=== PATIENT | female | born 1950 | race Caucasian/White ===

== ENCOUNTER → 2024-10-30 15:00 | Outpatient (REF) | payer OTHER, SELFPAY ==
--- OUTSIDE RECORDS SUMMARY | 2024-10-30 17:32 | XMS_ITS | Encounter Summary ---
Author Organization [facility] Healthcare Address [address] [place] [address] Care Team Providers Care Molder Foam Rubber Name Role Phone Ramona Woods MD Unavailable [phone] Vinicius Alvarado MD Unavailable [phone] Dre Palmer MD Primary Care Provider [phone] Reason for Referral * Consultation (Routine) - Authorized Specialty Diagnoses / Procedures Referred By Contac t Referred To Contact Cardiology Diagnoses Nonrheumatic mitral valve regurgitation Dre Palmer MD [address] [place] [address] [address] [place] [address] Phone: tel: fax: Ramona Woods MD [address] [place] [address] [address] [place] [address] Phone: tel: fax: Referral ID Status Reason Start Date Expiration Date Visits Requested Visits Authorized [id number] Authorized Specialty Services Required 11/05/2024 11/04/2025 6 6 Question Answer Please select the performing region: HOSP [facility] [[id number]] Please select the performing department: [facility] 122 [[id number]] To provider: RAMONA WOODS [[id number]] # of visits: 1 NG MACHINE OPERATOR PRODUCTION Encounter Details Date Type Department Care Team (Late st Contact Info) Description 10/29/2024 Orders Only [facility] Medical Group Primary Care at [place] [address] [facility] [address] [place] [address] Dre Palmer MD [address] [place] [address] [address] [place] [address] Nonrheumatic mitral valve regurgitation (Primary Dx) Social History Tobacco Use Types Packs/Day Years Used Date Smoking Tobacco: Never Smokeless Tobacco: Never Alcohol Use Standard Drinks/Week Comments Yes 0 (1 standard drink = 0.6 oz pur e alcohol) rarely OASIS D0700: Social Isolation Answer Da te Recorded Frequency of experiencing loneliness or isolatio n Never 11/19/2022 OASIS A1250: Transportation Answer Date Recorded Lack of Transportation (Medical) No 11/19/2022 Lack of Transportation (Non-Medical) No 11/19/2022 Patient Unable or Declines to Respond No 11/19/2022 OASIS B1300: Health Literacy Answer Feliciano e Recorded Frequency of needing help to read materials from doctor or pharmacy Never 11/19/2022 Social Connection and Isolat ion Panel [NHANES] Answer Date Recorded In a typical week, how many times do you talk on the phone with family, friends, or neighbors? More than three times a week 10/20/2022 How often do you get togethe r with friends or relatives? More than three times a week 10/20/2022 How often do you attend chur ch or confucianist services? More than 4 times per year 10/20/2022 Do you belong to any clubs o r organizations such as cheondoism groups, unions, fraternal or athletic groups, or school groups? Yes 10/20/2022 How often do you attend meet ings of the clubs or organizations you belong to? More than 4 times per year 10/20/2022 Are you , , di vorced, , never , or living with a partner? 10/20/2022 AUDIT-C Answer Date Recorded Q1: How often do you have a drink containing alcohol? Never 03/23/2023 Q2: How many drinks containi ng alcohol do you have on a typical day when you are drinking? Patient does not drink Q3: How often do you have si x or more drinks on one occasion? Never 03/23/2023 Overall Financial Resource Strain (CARDIA) Answe r Date Recorded How hard is it for you to pa y for the very basics like food, housing, medical care, and heating? Not hard at all 10/20/2022 PHQ-2 Answer Date Recorded PHQ-2 Total Score (If total score is 3 or more points, staff should administer the PHQ-9) 0 07/09/2024 Hunger Vital Sign Answer Date Recorded Within the past 12 months, y ou worried that your food would run out before you got the money to buy more. Never true 10/15/19 23 Within the past 12 months, t he food you bought just didn't last and you didn't have money to get more. Never true 10/15/2022 PRAPARE - Transportation Answer Date Re corded In the past 12 months, has l ack of transportation kept you from medical appointments or from getting medications? No 10/06 In the past 12 months, has l ack of transportation kept you from meetings, work, or from getting things needed for daily living? No 10/20/2022 Housing Stability Vital Sign Answer Feliciano e Recorded In the last 12 months, was t here a time when you were not able to pay the mortgage or rent on time? No 10/20/2022 In the last 12 months, how many places have you lived? 1 10/20/2022 In the last 12 months, was t here a time when you did not have a steady place to sleep or slept in a [place] [facility] [place] facility (including now)? No 10/20/2022 Personal Safety Answer Date Recorded Have you ever been in or are you currently in a harmful physical or emotional relationship or is someone making you feel afraid or unsafe? 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 Gender Identity Not on file Sexual Orientation Not on file documented as of this encounter Plan of Treatment Scheduled Referrals Name Type Priority Associated Diagnoses Orde r Schedule Ambulatory referral to Cardiology Outpatient Referral Routine Nonrheumatic mitral valve regurgitation Expected: 10/29/2024 (Approximate), Expires: 10/29/2025 documented as of this encounter Visit Diagnoses Diagnosis Nonrheumatic mitral valve regurgitation- Primary documented in this encounter Care Teams Molder Foam Rubber Relationship Specialty Start Date End Date Dre Palmer MD [address] [facility] [address] [place] [address] PCP - General Family Medicine 05/05/24 Ramona Woods MD [address] [place] [address] Consulting Physician Cardiology 05/28/22 Vinicius Alvarado MD [address] [facility] [address] [place] [address] Surgeon Orthopedic Surgery 07/22/22 documented as of this encounter
--- OUTSIDE RECORDS SUMMARY | 2024-10-30 17:32 | XMS_ITS | Encounter Summary ---
Author Organization [facility] Healthcare Address [address] [place] [address] Care Team Providers Care Process Engineering Intern Name Role Phone Ramona Woods MD Unavailable [phone] Vinicius Alvarado MD Unavailable [phone] Dre Palmer MD Primary Care Provider [phone] Reason for Visit * Reason Onset Date Comments Medical Question/Miscellaneous 10/11/2024 Referral Request 10/11/2024 Encounter Details Date Type Department Care Team (Late st Contact Info) Description 10/11/2024 Telephone [facility] Medical Group Primary Care at [address] [place] [address] Dre Palmer MD [address] [place] [address] [address] [place] [address] Medical Question/Miscellaneous ; Referral Request Social History Tobacco Use Types Packs/Day Years [...] often do you attend chur ch or restoration services? More than 4 times per year 10/20/2022 Do you belong to any clubs o r organizations such as orthodox groups, unions, fraternal or athletic groups, or [...] place to sleep or slept in a jail (including now)? No 10/20/2022 Personal Safety Answer Date Recorded Have you ever been in or are you currently in a harmful physical or emotional relationship or is someone making you feel afraid or unsafe? 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 Y BUTCHER * Telephone Encounter - Lety Rivera - 10/11/2024 10:27 AM CST Referral Provider Name: Shilpi Cueva MD Specialty: plastic surgeon Address: [address] [place] [address], Zip: [place] [address] Diagnosis Code/Symptom/Reason Patient is being seen: C44.92 Date of Appointment: 10/30/24 NPI#: [id number] Tax ID#: [id number] Is insurance in chart up to date? Yes, Essence Additional Comments: new patient appointment Does message need to be routed? Yes-Action Needed Y BUTCHER * Telephone Encounter - Carolyn Arambula - 10/11/2024 10:20 AM CST Medical Question/Miscellaneous Caller???s Concern: Patient called for a referral for Dr. Leung (Nithin) with 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 She did not know the first name of the provider.States she will see him at the [facility] and has a fax#. She will call back when she has more information. Does message need to be routed? No Y BUTCHER documented in this encounter Plan of Treatment Not on file documented as of this encounter Visit Diagnoses Not on filedocumented in this encounter Care Teams Process Engineering Intern Relationship Specialty Start Date End Date Dre Palmer MD [address] [facility] [address] [place], [place] [address], [place] [address] PCP - General Family Medicine 05/05/24 Ramona Woods MD [address] [place] [address] Consulting Physician Cardiology 05/28/22 Vinicius Alvarado MD [address] [facility] [address] [place] [address] Surgeon Orthopedic Surgery 07/22/22 documented as of this encounter
--- OUTSIDE RECORDS SUMMARY | 2024-10-30 17:32 | XMS_ITS | Patient Health Summary ---
Author Organization [facility] Address [address] [facility] [place] [address] Care Team Providers Care Warehouse Traffic Supervisor Name Role Phone Onelia Sow APRN-OBJECT ORIENTED DEVELOPER Primary Care Provide r Kathi Snider MD Unavailable [phone] Note from [facility],non-owned Affiliates and Associated Physician Practices is amultiple site organization consisting of ambulatory clinics and hospital sitesin [place], [place], [place] and [place]. This disclosure is being madepursuant to the Care Everywhere program and may not contain all information available regarding this patient. Last updated 18.[facility] Phase Eight Allergies No known active allergies Medications * Be aware that medications may not be up to date on this document. Alwaysverify current medications with the patient. * atorvastatin (LIPITOR) 40 MG tablet Take 40 mg by mouth * lisinopril-hydroCHLOROthiazide (PRINZIDE; ZESTORETIC) 10-12.5 MG tablet (Started 01/03/2017) Take 1 Tab by mouth once daily 5 refills remaining Active Problems Problem Noted Date Diagnosed Date Hypertension with goal blood pressure less than 130/85 01/21/2016 Pure hypercholesterolemia 01/21/2016 Chest pressure 01/21/2016 Shortness of breath 01/21/2016 Nonrheumatic aortic valve stenosis 01/21/2016 Social History Tobacco Use Types Packs/Day Years Used Date Smoking Tobacco: Never Alcohol Use Standard Drinks/Week Comments Yes 0 (1 standard drink = 0.6 oz pur e alcohol) Sex and Gender Information Value Date Recorded Sex Assigned at Not on file Gender Identity Not on file Sexual Orientation Not on file Last Filed Vital Signs Vital Sign Reading Time Taken Comments Blood Pressure 128/86 09/08/2016 11:45 AM MERCHANT MARINER Pulse 80 09/08/2016 11:45 AM MERCHANT MARINER Temperature - - Respiratory Rate 12 09/08/2016 11:45 AM MERCHANT MARINER Oxygen Saturation 12% 07/19/2016 9:50 AM MERCHANT MARINER Inhaled Oxygen Concentration - - Weight 80.7 kg (178 lb) 09/08/2016 11:45 AM MERCHANT MARINER Height 163.2 cm (5' 4.25 ) 09/08/2016 11:[address] Body Mass Index 30.32 09/08/2016 11:45 AM MERCHANT MARINER Procedures * DERMATOPATHOLOGY(Performed 01/24/2024) Performed for Squamous cell carcinoma of skin of right upper limb, including shoulder * NM MYOCARD PERF REST STRESS(Performed 01/26/2016) Performed for Chest discomfort, Dyspnea, unspecified type, Essential hypertension with goal blood pressure less than 130/80, Hyperlipidemia, unspecified hyperlipidemia type * LAB MISC TEST(Performed 12/08/2015) * ECHO COMPLETE(Performed 12/01/2015) * EKG 12-LEAD(Performed 11/05/2010) Results * DERMATOPATHOLOGY (01/24/2024 12:00 AM CDT) Case Report Dermatopathology Report Case: [id number] Authorizing Provider: Álvaro Noel MD Collected: 01/24/2024 12:00 AM Ordering Location: [facility] - Received: 01/25/2024 12:27 PM DermPath Lab Pathologist: Dimple Martinez MD Specimen: Skin, right shoulder 1:49 PM CDT DERMATOPATHOLOGY LABORATORY Final Diagnosis Specimen A. SKIN, right shoulder: DERMAL SCAR RESIDUAL SQUAMOUS CELL CARCINOMA NOT IDENTIFIED (L90.5) 1:49 PM CDT DERMATOPATHOLOGY LABORATORY Clinical History Squamous cell carcinoma. Check margins. See prior biopsy. 1:49 PM CDT DERMATOPATHOLOGY LABORATORY Gross Description Specimen A: Received is one formalin filled container labeled with the patient's name and designated right shoulder. The specimen consists of a non-oriented ellipse of skin measuring 33l91s5 mm. The epidermal surface is unremarkable. The margin is inked green. The 12 o'clock and 6 o'clock tips are submitted in cassette 1. The remainder of the ellipse is serially sectioned and submitted in cassette 2. Jar 0. 4 1:49 PM CDT DERMATOPATHOLOGY LABORATORY Microscopic Description Specimen A. SKIN, right shoulder: There are fibroblasts and collagen bundles oriented parallel to the skin surface. There are elongated blood vessels, some of which are oriented perpendicular to the skin surface. No residual squamous cell carcinoma is identified. 4 1:49 PM CDT DERMATOPATHOLOGY LABORATORY Disclaimer An external and internal positive and negative controls are appropriate for the histochemical, immunohistochemical and immunofluorescence stain(s) in this case (if any), except where stated explicitly. The performance characteristics of the stain(s) cited in this report were developed and its performance characteristic determined by the Dermatopathology Laboratory at [facility], directed by Dr. Etienne Sevilla. These tests need not be, and therefore are not, approved by the [place] Food and Drug Administration. The tests are used for clinical purposes. Billing Codes Specimen Charges Stain Charges 29027 1 4 1:49 PM CDT DERMATOPATHOLOGY LABORATORY Embedded Images 4 1:49 PM CDT DERMATOPATHOLOGY LABORATORY Pathology/Cytolog y TISSUE SPECIMEN FROM SKIN / Unknown 01/24/2024 01/25/2024 12:27 PM CDT Álvaro Noel MD LAB - PATHOLOGY/CYTO LOGY ORDERABLES DERMATOPATHOLOGY LABORATORY [facility] Department of Dermatology [address], [address] [phone] * NM MYOCARD PERFUSION SPECT STRESS AND REST (01/26/2016 10:01 AM CDT) Anatomical Region Laterality Modality Chest Other Narrative 01/26/2016 10:01 AM CDT Ginny Surinder 01/26/2016 10:01 AM See scan Kathi Snider MD NM ORDERABLES * LAB MISC TEST (12/08/2015) Other (qualifier value) BLOOD SPECIMEN / Unknown Onelia Sow APRN-MARIA E LAB SEND OUT * ECHO COMPLETE (12/01/2015) Historical Provider ECHO ORDERABLES * EKG 12-LEAD (11/05/2010) Historical Provider ECG ORDERABLES Care Teams Warehouse Traffic Supervisor Relationship Specialty Start Date End Date Onelia Sow, SUPPORT ASSISTANT-OBJECT ORIENTED DEVELOPER PCP - General Nurse Practitioner 01/21/16 Kathi Snider MD [address] [facility] [address] [facility] [place] [address] Cardiovascular Disease 01/21/16
--- OUTSIDE RECORDS SUMMARY | 2024-10-30 17:32 | XMS_ITS | Encounter Summary ---
Author Organization [facility] Healthcare Address [address] [place] [address] Care Team Providers Care Artificial Foliage Arranger Name Role Phone Rehana Carlos Primary Care Provider [phone] Ramona Woods MD Unavailable [phone] Vinicius Alvarado MD Unavailable [phone] Ramona Woods MD Unavailable [phone] Airam Armando RN Unavailable [phone] Dre Palmer MD Primary Care Provider [phone] Encounter Details Date Type Department Care Team (Late st Contact Info) Description 09/24/2022 Telephone [facility] Cardiac Catheterization [address] [place], [place] [id number] Antonina Foy RN Social History Tobacco Use Types Packs/Day Years Used Date Smoking Tobacco: Never Smokeless Tobacco: Never Alcohol Use Standard Drinks/Week Comments Yes 0 (1 standard drink = 0.6 oz pur e alcohol) rarely AUDIT-C Answer Date Recorded Q1: How often do you have a drink containing alc ohol? 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 05/15/2024 05/28/2024 08/13/2024 3:[address] documented as of this encounter Care Teams Artificial Foliage Arranger Relationship Specialty Start Date End Date Rehana Carlos DO PCP - General Family Medicine 05/03/18 05/04/24 Dre Palmer MD [address] [facility] [address] [place] [address] PCP - General Family Medicine 05/05/24 Ramona Woods MD [address] [place] [address] Consulting Physician Cardiology 05/28/22 Vinicius Alvarado MD [address] [facility] [address] [place] [address] Surgeon Orthopedic Surgery 07/22/22 Ramona Woods MD #[address] [place] [address] Referring Physician Cardiology 09/29/22 02/01/23 Airam Armando RN [address] [place] [address] [address] [place] [address] Computer Typesetter Keyliner 2/15/23 3/14/23 documented as of this encounter
--- OUTSIDE RECORDS SUMMARY | 2024-10-30 17:32 | XMS_ITS | Referral Summary ---
Author Organization [facility] Address [address] [place] [address] Care Team Providers Care Supervisor Wash House Name Role Phone Onelia Sow APRN-COOPERATIVE MANAGER Primary Care Provide r Kathi Snider MD Unavailable Source Comments [facility],non-owned Affiliates and Associated Physician Practices is amultiple site organization consisting of ambulatory clinics and hospital sitesin [place], [place], [place] and [place]. This disclosure is being madepursuant to the Care Everywhere program and may not contain all information available regarding this patient. Last updated 18.[facility] Allergies No known active allergies Medications * Be aware that medications may not be up to date on this document. Alwaysverify current medications with the patient. Medication Sig Dispensed Refills Start Date End Date Status atorvastatin (LIPITOR) 40 MG tablet Take 40 mg by mouth Active lisinopril-hydroCHLOROt hiazide (PRINZIDE; ZESTORETIC) 10-12.5 MG tablet Take 1 Tab by mouth once daily 30 Tab 5 01/03/2017 Active Active Problems Patient Care Coordination No te Formatting of this note migh t be different from the original. Guard Entrance Registrar - Dr. Kathi Snider Problem Noted Date Diagnosed Date Hypertension with goal blood pressure less than 130/85 01/21/2016 Pure hypercholesterolemia 01/21/2016 Chest pressure 01/21/2016 Shortness of breath 01/21/2016 Nonrheumatic aortic valve stenosis 01/21/2016 Overview (01/21/2016): Echo 12/01/15- Nl LV syst func, LVEF 73%, mild LAE, mild ( pk matt, 2.07, mean grad 9 mm Hg), mild MR/TR, RVSP43 mm Hg Social History Tobacco Use Types Packs/Day Years [...] Comments Blood Pressure 128/86 09/08/2016 11:45 AM COSTUMING SUPERVISOR Pulse 80 09/08/2016 11:45 AM COSTUMING SUPERVISOR Temperature - - Respiratory Rate 12 09/08/2016 11:45 AM COSTUMING SUPERVISOR Oxygen Saturation 12% 07/19/2016 9:50 AM COSTUMING SUPERVISOR Inhaled Oxygen Concentration - - Weight 80.7 kg (178 lb) 09/08/2016 11:45 AM COSTUMING SUPERVISOR Height 163.2 cm (5' 4.25 ) 09/08/2016 11:[address] Body Mass Index 30.32 09/08/2016 11:45 AM COSTUMING SUPERVISOR Plan of Treatment Not on file Care Teams Supervisor Wash House Relationship Specialty Start Date End Date Onelia Sow, LEARN TO SWIM INSTRUCTOR-COOPERATIVE MANAGER PCP - General Nurse Practitioner 01/21/16 Kathi Snider MD [address] [facility] [address] [facility] [place] [id number] Cardiovascular Disease 01/21/16
--- OUTSIDE RECORDS SUMMARY | 2024-10-30 17:32 | XMS_ITS | Encounter Summary ---
Author Organization [facility] Healthcare Address [address] [place] [address] Care Team Providers Care Slot Attendant Name Role Phone Ramona Woods MD Unavailable [phone] Vinicius Alvarado MD Unavailable [phone] Dre Palmer MD Primary Care Provider [phone] Reason for Visit * Reason Onset Date Comments Referral Request 10/26/2024 Encounter Details Date Type Department Care Team (Late st Contact Info) Description 10/26/[address] [facility] Medical Group Primary Care at [address] [place] [address] Dre Palmer MD [address] [place] [address] [address] [place] [address] Referral Request Social History Tobacco Use Types [...] often do you attend chur ch or synagogue services? More than 4 times per year 10/20/2022 Do you belong to any clubs o r organizations such as mosque groups, unions, fraternal or athletic groups, or [...] place to sleep or slept in a senior living (including now)? No 10/20/2022 Personal Safety Answer Date Recorded Have you ever been in or are you currently in a harmful physical or emotional relationship or is someone making you feel afraid or unsafe? 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 MAKER MACHINE SETTER * Telephone Encounter - Becka Delgadillo - 10/26/2024 8:23 AM CST Referral Provider Name: Dr. Ramona Woods Specialty: Automatic Line Set Up Mechanic Address: [address] [place] [address], Zip: [place] [address] Diagnosis Code/Symptom/Reason Patient is being seen: I34.0 Date of Appointment: 11/12 testing, 12/06 appt NPI#: [id number] Tax ID#: [id number] Is insurance in chart up to date? Yes, [employer] Additional Comments: Needs insurance referral Does message need to be routed? Yes-Action Needed MAKER MACHINE SETTER documented in this encounter Plan of Treatment Not on file documented as of this encounter Visit Diagnoses Not on filedocumented in this encounter Care Teams Slot Attendant Relationship Specialty Start Date End Date Dre Palmer MD [address] [place] [address], [place] [address] PCP - General Family Medicine 05/05/24 Ramona Woods MD [address] [place] [address] Consulting Physician Cardiology 05/28/22 Vinicius Alvarado MD [address] [facility] [address] [place] [address] Surgeon Orthopedic Surgery 07/22/22 documented as of this encounter
--- OUTSIDE RECORDS SUMMARY | 2024-10-30 17:32 | XMS_ITS | Clinical Summary ---
Author Organization [facility] Address [address] [address] Phone Care Team Providers Care Oyster Grower Name Role Phone Ramona Woods MD Unavailable [phone] Vinicius Alvarado MD Unavailable [phone] Dre Palmer MD Primary Care Provider [phone] Allergies No known active allergies Medications cholecalciferol, vitamin D3, (VITAMIN D3 ORAL) Take 1 tablet by mouth daily Active aspirin 81 mg enteric coated tabletIndications: Primary hypertension,Mixed hyperlipidemia Take 1 tablet (81 mg total) by mouth daily 90 tablet 3 11/30/19 23 Active Additional Information Patient not taking.Reported on 07/09/2024 metoprolol tartrate (LOPRESSOR) 25 mg immediate release tablet Take 0.5 tablets (12.5 mg total) by mouth 2 (two) times a day 30 tablet 11 03/28/20 24 Active furosemide (LASIX) 20 mg tablet Take 1 tablet (20 mg total) by mouth daily 90 tablet 3 04/04/20 24 Active albuterol HFA (PROVENTIL HFA,VENTOLIN HFA,PROAIR HFA) 90 mcg/actuation inhaler Inhale 2 puffs every 4 (four) hours as needed for shortness of breath 8.5 g 05/05/20 24 025 Active clobetasoL (TEMOVATE) 0.05 % cream Apply topically 2 (two) times a day 60 g 2 07/09/20 24 Active rosuvastatin (CRESTOR) 10 mg tabletIndications: Mixed hyperlipidemia Take 1 tablet (10 mg total) by mouth nightly 90 tablet 3 07/11/20 24 Active sertraline (ZOLOFT) 50 mg tabletIndications: Major depressive disorder, single episode, mild (HCC) Take 1 tablet (50 mg total) by mouth daily 90 tablet 1 08/21/20 24 Active potassium chloride ER 20 mEq CR tablet Take 1 tablet (20 mEq total) by mouth daily 90 tablet 1 08/30/20 24 Active Active Problems Problem Noted Date Diagnosed Date Stage 3a chronic kidney disease 07/09/2024 Assessment & Plan (07/09/2024 2:16 PM MICA PLATE LAYER): Chemistry Lab Results Component Value Date SODIUM 141 06/19/2024 POTASSIUM 4.0 06/19/2024 CHLORIDE 107 06/19/2024 CO2 26 06/19/2024 ANIONGAP 8 06/19/2024 BUNSER 14 06/19/2024 CREATININE 1.14 (H) 06/19/2024 GLUCOSE 107 06/19/2024 URICACID 4.0 02/01/2013 CALCIUM 8.4 (L) 06/19/2024 BILITOT 1.8 (H) 05/05/2024 PROTEIN 6.8 10/08/2016 ALBUMIN 3.6 05/05/2024 GFRNAA 51 (L) 06/19/2024 ALKPHOS 114 05/05/2024 AST 88 (H) 05/05/2024 ALT 17 05/05/2024 PHOS 3.9 10/19/2022 MAGNESIUM 2.0 05/05/2024 Stable Recheck cmp with next labs Annual physical exam 07/09/2024 Assessment & Plan (07/09/2024 2:20 PM MICA PLATE LAYER): Discussed lifestyle modifications, diet and exercise. Routine blood work ordered/reviewed today. Yearly vision and dental examinations. Pain of right thumb 09/02/2023 Assessment & Plan (09/02/2023 10:14 PM MICA PLATE LAYER): Referral to hand surgeon, suspect ganglion cyst. Right calf pain 03/25/2023 Assessment & Plan (03/25/2023 12:21 PM CDT): Ultrasound vein duplex Doppler right lower extremity ordered. This was ordered as a stat hold and call. Patient is in no acute distress. Primary osteoarthritis of left knee 02/21/2023 Lesion of right radial nerve 02/18/2023 Carpal tunnel syndrome on right 02/18/2023 Right hand paresthesia 11/29/2022 Assessment & Plan (02/02/2023 6:31 PM CDT): Improved, continue gabapentin. Assessment & Plan (11/29/2022 12:32 PM CDT): Improving. Increase gabapentin 300mg nightly up to 600 mg nightly. Diuretic-induced hypokalemia 11/29/2022 Assessment & Plan (11/29/2022 12:33 PM CDT): Asymptomatic. Stable. Continue current prescription medications, potassium chloride ER. Current mild episode of alexander r depressive disorder without prior episode 11/10/2022 Assessment & Plan (02/02/2023 6:32 PM CDT): Stable. Cont. Current prescription medications, sertraline. Assessment & Plan (11/29/2022 12:27 PM CDT): Clinically improved, continue current prescription medications, sertraline. Assessment & Plan (11/10/2022 4:24 PM MICA PLATE LAYER): Discussed starting a medication and pt is agreeable. Will start sertraline . Discussed starting dose and titration to full dose, possible SE and time frame for expected results. Call if any suicidal thoughts or questions concerning SE. Do not abruptly stop medication without calling office. Follow up in 3-4 weeks for recheck and continuation of medications. Severe mitral valve regurgitation 10/11/2022 History of basal cell carcinoma (BCC) of skin Overview (03/24/2022): March 2022, Managed by dermatology Tremor of right hand 12/11/2021 Assessment & Plan (09/02/2023 10:14 PM MICA PLATE LAYER): Referral placed for neurology for further eval/mgmt. Assessment & Plan (08/03/2023 12:13 PM MICA PLATE LAYER): Referred to neurology for further eval/mgmt. Assessment & Plan (12/11/2021 2:15 PM CDT): Referred to neurology for further evaluation and management. Vitamin D deficiency 12/16/2020 Assessment & Plan (08/03/2023 12:13 PM MICA PLATE LAYER): Non-compliant with vitamin d supplement. Encouraged compliance. Labs ordered, will follow. Vit D3 5,000 international units daily has been recommended. Assessment & Plan (02/02/2023 6:33 PM CDT): Asx, labs ordered, will follow. Cont vit D supplements. Assessment & Plan (07/22/2022 2:46 PM MICA PLATE LAYER): Asymptomatic. Labs ordered, continue vitamin-D supplements. Assessment & Plan (12/11/2021 2:16 PM CDT): Labs ordered, will follow. Assessment & Plan (07/20/2021 12:53 PM MICA PLATE LAYER): Labs ordered Dermatomyositis 01/29/2020 Overview (01/29/2020): Managed by manager meat Assessment & Plan (06/17/2020 5:31 PM CDT): Managed by manager meat. Class 1 obesity due to exces s calories with serious comorbidity and body mass index (BMI) of 31.0 to 31.9 in adult 02/27/2019 Assessment & Plan (07/09/2024 2:13 PM MICA PLATE LAYER): Wt Readings from Last 3 Encounters: 07/09/24 88.8 kg (195 lb 12.8 oz) 05/31/24 87.1 kg (192 lb) 10/03/23 83.5 kg (184 lb) BMI Readings from Last 3 Encounters: 07/09/24 33.59 kg/m 05/31/24 32.96 kg/m 10/03/23 32.59 kg/m Not at goal of bmi <30 Continue diet and exercise BMI Follow-up includes: nutrition counseling and exercise counseling. Assessment & Plan (12/11/2021 2:16 PM CDT): Weight reduction, daily exercise and dietary modifications recommended. Assessment & Plan (07/20/2021 12:53 PM MICA PLATE LAYER): Healthy, low carbohydrate lifestyle and exercise for 150min/week recommended Assessment & Plan (12/24/2020 11:23 AM CDT): Weight reduction, daily exercise and dietary modifications recommended. Assessment & Plan (10/03/2020 8:59 AM MICA PLATE LAYER): Healthy, low carbohydrate lifestyle and exercise for 150min/week recommended Assessment & Plan (06/17/2020 5:33 PM CDT): Weight reduction, daily exercise and dietary modifications recommended. Assessment & Plan (02/27/2019 3:21 PM CDT): Obesity is unchanged. Discussed the patient's BMI. The BMI is above average; BMI management plan is completed. General weight loss/lifestyle modification strategies discussed (elicit support from others; identify saboteurs; non-food rewards, etc). Neuropathy 02/27/2019 Assessment & Plan (08/03/2023 12:13 PM MICA PLATE LAYER): Continue gabapentin, referred to neurology. Assessment & Plan (02/02/2023 6:34 PM CDT): Improved, continue gabapentin. Assessment & Plan (06/17/2020 5:32 PM CDT): Trial of Duloxetine, referred to neurology for further eval. Assessment & Plan (02/27/2019 3:21 PM CDT): Consider a trial of vitamion B6 25 - 50 mg qd. RTC if no improvement. Axillary mass, right 02/08/2018 Assessment & Plan (03/25/2023 12:21 PM CDT): Axillary ultrasound ordered. Will follow. Assessment & Plan (05/03/2018 6:59 PM CDT): Referred to Gen. Sx for further eval/Tx Nonrheumatic aortic valve stenosis 06/08/2017 Assessment & Plan (07/22/2022 2:49 PM MICA PLATE LAYER): Mildly symptomatic with SHABAZZ, managed by cardiology. Assessment & Plan (12/11/2021 2:15 PM CDT): Referral to Cardiology per patient request for the new year. Assessment & Plan (07/20/2021 12:52 PM MICA PLATE LAYER): Stable, continues follow up with Cardiology Assessment & Plan (05/03/2018 6:59 PM CDT): Mildly SOB, referred ot cardiology for further eval/mgmt Assessment & Plan (06/08/2017 1:53 PM CDT): ECHO done in 2015. Khari continue to monitor. Primary hypertension 06/08/2017 Assessment & Plan (07/09/2024 2:15 PM MICA PLATE LAYER): BP Readings from Last 3 Encounters: 07/09/24 130/70 05/31/24 122/68 05/05/24 160/55 Vitals BP 130/70 (BP Location: Left arm, Patient Position: Sitting) Pulse 73 Resp 16 Ht 162.6 cm (5' 4.02 ) Wt 88.8 kg (195 lb 12.8 oz) LMP (LMP Unknown) SpO2 97% BMI 33.59 kg/m Lab Results Component Value Date POTASSIUM 4.0 06/19/2024 At goal Cotninue lopressor 12.5 mg bid, lasix 20 mg every day Chemistry Lab Results Component Value Date SODIUM 141 06/19/2024 POTASSIUM 4.0 06/19/2024 CHLORIDE 107 06/19/2024 CO2 26 06/19/2024 ANIONGAP 8 06/19/2024 BUNSER 14 06/19/2024 CREATININE 1.14 (H) 06/19/2024 GLUCOSE 107 06/19/2024 URICACID 4.0 02/01/2013 CALCIUM 8.4 (L) 06/19/2024 BILITOT 1.8 (H) 05/05/2024 PROTEIN 6.8 10/08/2016 ALBUMIN 3.6 05/05/2024 GFRNAA 51 (L) 06/19/2024 ALKPHOS 114 05/05/2024 AST 88 (H) 05/05/2024 ALT 17 05/05/2024 PHOS 3.9 10/19/2022 MAGNESIUM 2.0 05/05/2024 Assessment & Plan (08/03/2023 12:12 PM MICA PLATE LAYER): Blood pressure at goal less than 140/90, continue current prescription medications, furosemide, metoprolol tartrate. Managed by cardiology. Assessment & Plan (02/02/2023 6:32 PM CDT): Blood pressure at goal less than 140/90, continue current prescription medications, furosemide, metoprolol. Assessment & Plan (11/29/2022 12:28 PM CDT): Clinically improved, continue current prescription medications, furosemide, metoprolol tartate. Assessment & Plan (07/22/2022 2:45 PM MICA PLATE LAYER): Blood pressure on the lower side today, however, patient is asymptomatic. Blood pressure is managed by Cardiology. Blood pressure goal is less than 140/90. Assessment & Plan (12/11/2021 2:15 PM CDT): Stable. Cont. Current prescription medications. Assessment & Plan (07/20/2021 12:52 PM MICA PLATE LAYER): Stable, continues follow up with Cardiology Assessment & Plan (12/24/2020 11:23 AM CDT): Blood pressure is hypotensive however patient is asymptomatic. Patient also sees Cardiology, who manages her losartan. Patient encouraged to get a home blood pressure monitor. If symptomatic, notify our office or the cost recorder office. Assessment & Plan (06/17/2020 5:32 PM CDT): Stable. Cont. Current meds. Assessment & Plan (07/04/2019 10:20 AM CDT): Clinically resolved. Consider cutting back on bp meds. Will follow and decide on the next visit. Assessment & Plan (02/27/2019 3:19 PM CDT): Hypertension is improving with treatment. Continue current treatment regimen. Dietary sodium restriction. Weight loss. Regular aerobic exercise. Continue current medications. Ambulatory blood pressure monitoring. Blood pressure will be reassessed at the next regular appointment. Furosemide 40 mg qd, losartan 100mg qd Assessment & Plan (05/03/2018 7:04 PM CDT): Hypertension is unchanged. Continue current treatment regimen. Dietary sodium restriction. Weight loss. Regular aerobic exercise. Continue current medications. Blood pressure will be reassessed at the next regular appointment. Assessment & Plan (06/08/2017 1:51 PM CDT): Hypertension is fair control-hope will improve with change of HCTZ to furosemide.. Continue current treatment regimen. Dietary sodium restriction. Regular aerobic exercise. Blood pressure will be reassessed at the next regular appointment. SHABAZZ (dyspnea on exertion) 06/07/2017 Assessment & Plan (07/09/2024 2:09 PM MICA PLATE LAYER): Following with cardio TTE pending Worsening sx Recommend increase exercise Following up with cardio Normal xray but pt is s/p open heart surgery Assessment & Plan (09/02/2023 10:13 PM MICA PLATE LAYER): Currently asymptomatic, referred to cardiology for further eval/mgmt. Assessment & Plan (06/08/2017 1:50 PM CDT): Will continue the lisinopril. Start Furosemide 40 mg along with Potassium 20 meq daily. Mixed hyperlipidemia 10/20/2014 Overview (12/11/2016): Hyperlipidemia Assessment & Plan (07/09/2024 1:47 PM MICA PLATE LAYER): Lab Results Component Value Date CHOL 162 02/01/2023 CHOL 159 07/28/2022 CHOL 155 09/22/2021 Lab Results Component Value Date HDL 39 (L) 02/01/2023 HDL 57 07/28/2022 HDL 51 09/22/2021 Lab Results Component Value Date LDLCALC 108 02/01/2023 LDLCALC 91 07/28/2022 LDLCALC 93 09/22/2021 LDL 108 10/08/2016 LDL 191 (H) 11/27/2015 LDL 191 (H) 10/17/2014 Lab Results Component Value Date TRIG 75 02/01/2023 TRIG 54 07/28/2022 TRIG 53 09/22/2021 No results found for: POCCHDLR No results found for: POCNONHDL No results found for: POCCHLPL Stable Continue crestor 10 mg qhs Assessment & Plan (08/03/2023 12:11 PM MICA PLATE LAYER): LDL near goal of < 100, low chol diet recommended, continue Crestor. Assessment & Plan (02/02/2023 6:34 PM CDT): LDL near goal of < 100, low chol diet recommended. Cont rosuvastatin. Assessment & Plan (11/29/2022 12:30 PM CDT): LDL at goal of less than 100, continue current prescription medications, rosuvastatin. Assessment & Plan (07/22/2022 2:47 PM MICA PLATE LAYER): LDL at goal of less than 100, continue with dietary modifications and Rx medications. Assessment & Plan (12/11/2021 2:16 PM CDT): Low-cholesterol diet recommended. Continue current prescription medications. Assessment & Plan (07/20/2021 12:52 PM MICA PLATE LAYER): Stable, continuing Lipitor and labs ordered Assessment & Plan (12/24/2020 11:00 AM CDT): resolved Assessment & Plan (06/17/2020 5:32 PM CDT): Stable. Cont. Current meds. Assessment & Plan (07/04/2019 10:20 AM CDT): Clinically improved, continue current meds. Assessment & Plan (02/27/2019 3:19 PM CDT): Lipid abnormalities are improving with lifestyle modifications. Nutritional counseling was provided. and Pharmacotherapy as ordered. Lipids will be reassessed 4 months. Atorvastatin 40 mg qd Assessment & Plan (05/03/2018 7:04 PM CDT): Lipid abnormalities are unchanged. Nutritional counseling was provided. and Pharmacotherapy as ordered. Lipids will be reassessed in 6 months. Assessment & Plan (06/08/2017 1:52 PM CDT): Lipid abnormalities are improving with treatment. Pharmacotherapy as ordered. Lipids will be reassessed today. Resolved Problems Problem Noted Date Diagnosed Date Resolved Date Arm wound, right, initial encounter 11/14/2022 01/24/2023 Assessment & Plan (11/14/2022 9:12 PM CDT): Will start wet to dry dressings, changing daily and refer to wound care. She's also having some neuropathic pain with it, so we'll try gabapentin 100mg at bedtime titrating up to 300mg at bedtime, which we hope will help with her sleep as well. Acute pain of left knee 05/30/202207/06 Assessment & Plan (05/30/2022 5:22 PM CDT): Rxs given. Suspect knee sprain, and/or cartilage damage. Referred to Ortho for further eval/mgmt. Skin lesion of face 12/11/2021 07/22/20 Assessment & Plan (12/11/2021 2:15 PM CDT): Referred to dermatology for further evaluation and management. Encounter for screening colonoscopy 02/06/2021 12/11/2021 Overview (02/06/2021): Added automatically from request for surgery [id number] Poison pete dermatitis 02/29/20202019 Assessment & Plan (02/29/2020 11:34 AM CDT): Patient asked if I could address her poison pete. A gave her a prescription for a Medrol Dosepak. Foot pain, right 01/29/2020 06/17/2020 Assessment & Plan (02/01/2020 8:53 AM CDT): Diagnostic studies ordered. Will follow. Absent pedal pulses 01/29/2020 07/22/20 22 Nonrheumatic mitral valve regurgitation 05/03/2018 07/09/2024 Assessment & Plan (07/22/2022 2:49 PM MICA PLATE LAYER): Mildly symptomatic with SHABAZZ, managed by cardiology. Assessment & Plan (05/18/2021 10:46 AM CDT): I plan to further investigate her mitral insufficiency by assessing her PA pressures, LV systolic dimension and EF. We will do this with echocardiography. number will also reassess her filling pressures with proBNP value. If no changes required we will call her by phone and I will review her care on an annual or as-needed basis. Assessment & Plan (02/29/2020 11:34 AM CDT): A plan to further investigate her mitral insufficiency by assessing her PA pressures, LV systolic dimension and EF. We will do this with echocardiography. If no changes required we will call her by phone and I will review her care on an annual or as-needed basis. Assessment & Plan (05/03/2018 7:02 PM CDT): Mildly SOB, referred ot cardiology for further eval/mgmt Pure hypercholesterolemia 01/21/2016 Hypertension with goal blood pressure less than 130/85 01/21/2016 02/28/2020 Nonrheumatic aortic valve stenosis 01/21/2016 02/28/2020 Overview (10/17/2019): Overview: Echo 12/01/15- Nl LV syst func, LVEF 73%, mild LAE, mild ( pk matt, 2.07, mean grad 9 mm Hg), mild MR/TR, RVSP43 mm Hg Sprain of rotator cuff capsule 04/04/2015 07/22/2022 Encounters Date Type Department Care Team Description 10/29/2024 Orders Only [facility] Medical [facility] at [address] [phone] Dre Palmer MD Nonrheumatic mitral valve regurgitation (Primary Dx) 10/26/2024 Telephone [facility] at [address] [phone] Dre Palmer MD Referral Request 10/11/2024 Telephone [facility] at [address] [phone] Dre Palmer MD Medical Question/Miscellaneous ; Referral Request 09/13/2024 Telephone [facility] Medical [facility] [address] [place] [phone] Dre Palmer MD 08/22/2024 8:27 AM MICA PLATE LAYER - 08/22/2024 11:59 PM MICA PLATE LAYER Hospital Encounter [facility] [address] [place] [address] Elevated liver enzymes Discharge Disposition: Discharge to home or self care from Last 3 Months Immunizations Immunization Administration Dates Next Due Influenza, Quadrivalent, Hig h Dose, Preservative Free, Intrr 08/03/2023,05/28/2022,06/22/2021,06/17 Influenza, Quadrivalent, Spl it, Preservative Free, Intradermal 08/11/2016 Influenza, Quadrivalent, Spl it, Preservative Free, Intramuscular 06/07/2017 Influenza, Trivalent, High D ose, Split, Preservative Free, Intramuscular 07/09/2024,07/04/2019,07/07/2018 Influenza, Trivalent, IM (MDV) 10/14/2014 Moderna SARS-CoV-2 Monovalen t Vaccination (12+ YRS) 10/29/2020,10/03/2020 Pneumococcal Conjugate PCV 13 02/27/2019 Pneumococcal Polysaccharide PPV23 03/25/2020 Tdap 04/02/2022,02/01/2013 ZOSTER LIVE 02/01/2013 ZOSTER Recombinant 12/20/2020,09/11/2020 Surgical History Surgery Date Site/Laterality Comments ROTATOR CUFF REPAIR 09/05/2014 - 09/04/2015 Right BREAST CYST EXCISION 09/05/1977 - 09/04/1978 HYSTERECTOMY 09/05/1989 - 09/04/1990 OOPHORECTOMY 09/05/1989 - 09/04/1990 COLONOSCOPY BREAST BIOPSY 08/06/2020 Right benign ultrasound guided bx LIPOMA RESECTION Right axilla MITRAL VALVE REPLACEMENT 10/11/2022 MV Repair 28 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/11/2022 Replacement of Ascending Aorta, Anibal-Arch using Gel-weave graft Medical History Medical History Date Comments Hyperlipidemia Hyperlipidemia Hypertension mitral valve regurgitation CHF (congestive heart failure) (CMS/HCC) (HCC) Arthritis Dermatomyositis (HCC) Lesion of right radial nerve Family History Medical History Relation Name Comments Other Brother Ravindra MVA-; Heart attack Father Myocardial infa rction; Cause of : Myocardial infarction Hypertension Father Hypertension; / Hypertension; Breast cancer Father's Sister Cancer Father's Sister Other Father's Sister Cancer -mets breast; Diabetes Maternal Grandfather Hypertension Mother Hypertension; Other Mother Alive and well; Stroke Mother Heart disease Other Breast cancer Sister 1 Krystle Cancer Sister 1 Krystle Other Sister 1 Krystle Alive and well; Other Sister 2 Chichi Alive and well; Other Sister 3 Jered Alive and well; Ovarian cancer Neg Hx Thyroid cancer Neg Hx Relation Name Status Comments Brother Ravindra Father Father's Sister Maternal Grandfather Mother Alive Other Sister 1 Krystle Alive Sister 2 Chichi Alive Sister 3 Jered Alive Social History Tobacco Use Types Packs/Day Years Used Date Smoking Tobacco: Never Smokeless Tobacco: Never Tobacco Cessation:Counseling Given: Not Answered Alcohol Use Standard Drinks/Week Comments Yes 0 [...] often do you attend chur ch or denominational services? More than 4 times per year 10/20/2022 Do you belong to any clubs o r organizations such as caodaism groups, unions, fraternal or athletic groups, or [...] place to sleep or slept in a long-term (including now)? No 10/20/2022 Personal Safety Answer Date Recorded Have you ever been in or are you currently in a harmful physical or emotional relationship or is someone making you feel afraid or unsafe? Denies 05/05/2024 Comments No Sex and Gender Information Value Date Recorded Sex Assigned at Not on file Legal Sex Female 9:35 AM MICA PLATE LAYER Gender Identity Not on file Sexual Orientation Not on file Obstetrics History Para Term AB IAB SAB Ectopic Multiple Livin g Live Births 5 4 4 Date Outcome GA Total Labor Labor/2nd/3rd Weight Sex Type Anes PTL Chrissy A1 A5 Name Clin Term Term Term Term Last Filed Vital Signs Vital Sign Reading Time Taken Comments Blood Pressure 130/70 07/09/2024 1:41 PM MICA PLATE LAYER Pulse 73 07/09/2024 1:41 PM MICA PLATE LAYER Temperature 38.4 C (101.1 F) 05/05/2024 8:07 PM CDT Respiratory Rate 16 07/09/2024 1:41 PM MICA PLATE LAYER Oxygen Saturation 97% 07/09/2024 1:41 PM MICA PLATE LAYER Inhaled Oxygen Concentration - - Weight 88.8 kg (195 lb 12.8 oz) 07/09/2024 1:41 PM MICA PLATE LAYER Height 162.6 cm (5' 4.02 ) 07/09/2024 1:41 PM CS T Body Mass Index 33.59 07/09/2024 1:41 PM MICA PLATE LAYER Plan of Treatment Health Maintenance Due Date Last Done Comments Hepatitis B Screening 1968 Covid-19 Vaccine (2023-2 5 season) 2024 07/08/2023, 09/08/2022, 07/29/2021, Additional history exists Colon Cancer Screening-Colonoscopy 05/20/2024 05/20/2021, 04/02/2019 Osteoporosis Screening-Bone Density Scan 09/10/2024 09/10/2022, 06/25/2020, 05/01/2013 Breast Cancer Screening-Mammogram 11/16/2024 11/17/2023, 09/10/2022, 09/07/2021, Additional history exists Depression Screening 07/09/2025 07/09/2024, 09/02/2023, 08/03/2023, Additional history exists Fall Risk Assessment 07/09/2025 07/09/2024, 09/02/2023, 08/03/2023, Additional history exists Well Visit 65+ 07/09/2025 07/09/2024, 07/07, 07/22/2022, Additional history exists DTaP/Tdap/Td Vaccine (3 - Td or Tdap) 04/02/2032 04/02/2022, 02/01/2013 Hepatitis C Screening Completed 07/04/2019, 019 Pneumococcal vaccine 65+ Completed 03/25/2020, 02/04 Zoster Vaccine Completed 12/20/2020, 03/2021, 02/01/2013 Colon Cancer Screening-CT Colonography Discontinued 05/20/2021, 04/02/2019 Colon Cancer Screening-DNA Stool Discontinued 05/20/2021, 04/02/2019, 04/02/2019 Colon Cancer Screening-FIT Discontinued 05/20, 04/02/2019, 04/02/2019 Colon Cancer Screening-Sigmoidoscopy Discontinued 05/20/2021, 04/02/2019 Influenza Vaccine Completed 07/09/2024, , 05/28/2022, Additional history exists Medical Devices Implanted Type Area [employer] Officer Device Identifier Shelf Expiration Date Model / Serial / Lot Bard Peripheral Vascular [id number] Ultraclip Bard 17ga 12cm 2 Trigger Permanent Ultrasound - [id number] - [id number] Implanted:Qty: 1 on 08/06/2020 by Sandip Stauffer MD at [facility] Breast Right: Breast Bard Peripheral Vascular 10/02/2022 [id number] / [id number] / Terumo Cardio Vascular Gelweave Od6 Mm L30 Cm Suture Retention Unique Hydrolyzable Abdomen Thorax Straight Graft Cardiovascular Gelatin Polyester Woven [id number] - [id number] - [id number] Implanted:Qty: 1 on 10/11/2022 by Jose Pires MD at [facility] Graft Right: Axillary Artery Terumo Cardio Vascular 03/04/2025 [id number] / [id number] / [id number] [employer] Graft Biological Cardiovascular Photofix 6x8cm Acellular Dermis Pfp 6x8 - [id number] Implanted:Qty: 1 on 10/11/2022 by Jose Pires MD at [facility] Graft N/A: Aorta [employer] 06/13/2024 PFP 6X8 / / [id number] Terumo Cardio Vascular Gelweave 32mm 30cm Suture Retention Unique Hydrolyzable Abdomen [id number] - [id number] - [id number] Implanted:Qty: 1 on 10/11/2022 by [facility]ires [facility] [facility] Graft N/A: Aorta [employer] 06/04/2025 [id number] / [id number] / [id number] [employer] Gelweave 28mm 30cm Suture Retention Unique Hydrolyzable Abdomen [id number] - [id number] - [id number] Implanted:Qty: 1 on 10/11/2022 by Jose Pires MD at [facility] Graft N/A: Aorta [employer] 02/02/2025 [id number] / [id number] / [id number] [employer] Stacie-Edward s Physio Ii 28mm Conde Sew Mitral Ring [id number] - [id number] - [id number] Implanted:Qty: 1 on 10/11/2022 by Jose Pires MD at [facility] Prosthetic Valve N/A: Mitral Valve [employer] 03/30/2027 [id number] / [id number] / Explanted Type Area Youth Corrections Officer Device Identifier Shelf Expiration Date Model / Serial / Lot [employer] Stacie-Joowa rds Physio Ii 32mm Conde Sew Mitral Ring [id number] - [id number] - [id number] Explanted:Qty: 1 on 10/11/2022 at [facility] Prosthetic Valve N/A: Mitral Valve [employer] 02/16/2027 [id number] / [id number] / [employer] Weck Horizon 6 Cartridge Ligate Triangulate Cross Section Heart [id number] - [id number] Explanted:Qty: 1 on 10/11/2022 at [facility] Right: Axillary Artery [employer] [id number] / / [employer] Weck Horizon 6 Cartridge Ligate Triangulate Cross Section Heart [id number] - [id number] Explanted:Qty: 1 on 10/11/2022 at [facility] Right: Axillary Artery [employer] [id number] / / [employer] Weck Horizon 6 Cartridge Ligate Triangulate Cross Section Heart [id number] - [id number] Explanted:Qty: 1 on 10/11/2022 at [facility] Right: Axillary Artery [employer] [id number] / / [employer] Horizon Ligate Triangulate Cross Section Wire Large Chevron Heart Latex Free [id number] - [id number] Explanted:Qty: 1 on 10/11/2022 at [facility] [employer] [id number] / / [employer] Weck Horizon 6 Cartridge Ligate Triangulate Cross Section Heart [id number] - [id number] Explanted:Qty: 1 on 10/12/2022 by Jose Pires MD at [facility] [employer] [id number] / / [employer] Weck Horizon 6 Cartridge Ligate Triangulate Cross Section Heart [id number] - [id number] Explanted:Qty: 1 on 10/12/2022 by Jose Pires MD at [facility] [employer] [id number] / / Procedures Procedure Name Priority Date/Time Associated Diagnosis Comments US LIVER Schedule Routine, Read Routine (OP Routine) 08/22/2024 9:17 AM MICA PLATE LAYER Elevated liver enzymes SCREENING MAMMOGRAM BILATERAL W YONATHAN Schedule Routine, Read Routine (OP Routine) 11/17/2023 10:41 AM CDT Screening mammogram, encounter for DEXA AXIAL SKELETON BONE DENSITY 1 OR MORE SITES Schedule Routine, Read Routine (OP Routine) 09/10/2022 11:13 AM MICA PLATE LAYER Postmenopausal Screening for osteoporosis COLONOSCOPY 05/20/2021 10:23 AM CDT HEPATITIS C ANTIBODY Routine 07/04/2019 10:02 AM CDT Encounter for hepatitis C screening test for low risk patient from Last 3 Months or Most Recently Relevant to Health Maintenance Results * US Liver (08/22/2024 9:17 AM MICA PLATE LAYER) Anatomical Region Laterality Modality Abdomen N/A Ultrasound 08/28/2024 11:0 5 AM MICA PLATE LAYER Narrative 08/28/2024 11:07 AM MICA PLATE LAYER EXAM DESCRIPTION: US LIVER REASON FOR STUDY: Elevated liver enzymes TECHNIQUE: Grayscale images acquired of the liver and recorded on PACS. Additional selected color Doppler and spectral images recorded. Selected velocities recorded. COMPARISON: No prior studies are available for comparison at time of this dictation. FINDINGS: LIVER: The liver appears normal in echotexture and echogenicity. No focal lesion identified. LIVER VASCULATURE: The main portal vein is patent with antegrade flow. GALLBLADDER: The gallbladder appears unremarkable. No cholelithiasis. No gallbladder wall thickening or pericholecystic fluid. No positive sonographic Lohn sign reported. BILIARY: No ductal dilatation. Common duct measures 5 mm . ASCITES: None. OTHER: Right kidney measures 9.4 cm in length. The right kidney is unremarkable. IMPRESSION: Normal liver ultrasound. THIS IS AN ELECTRONICALLY VERIFIED FINAL REPORT 08/28/2024 11:07 AM - Electronically signed by Jamarcus Marsh M.D. MM: MM Report ID: [id number] Reading Location: [id number] Procedure Note Jamarcus Marsh MD - 08/28/2024 EXAM DESCRIPTION: US LIVER REASON FOR STUDY: Elevated liver enzymes TECHNIQUE: Grayscale images acquired of the liver and recorded on PACS. Additional selected color Doppler and spectral images recorded. Selected velocities recorded. COMPARISON: No prior studies are available for comparison at time of this dictation. FINDINGS: LIVER: The liver appears normal in echotexture and echogenicity. Nofocal lesion identified. LIVER VASCULATURE: The main portal vein is patent with antegrade flow. GALLBLADDER: The gallbladder appears unremarkable. No cholelithiasis.No gallbladder wall thickening or pericholecystic fluid. No positivesonographic Lohn sign reported. BILIARY: No ductal dilatation. Common duct measures 5 mm . ASCITES: None. OTHER: Right kidney measures 9.4 cm in length. The right kidney is unremarkable. IMPRESSION: Normal liver ultrasound. THIS IS AN ELECTRONICALLY VERIFIED FINAL REPORT 08/28/2024 11:07 AM - Electronically signed by Jamarcus Marsh M.D. MM: MM Report ID: [id number] Reading Location: [id number] us Dre Palmer MD IMG US PROCEDURES Final Result * Screening Mammogram Bilateral W Yonathan (11/17/2023 10:41 AM CDT) Anatomical Region Laterality Modality Breast Bilateral Mammography 11/17/2023 10:5 1 AM CDT Impressions 11/17/2023 10:51 AM CDT There is no mammographic evidence of malignancy. A 1 year screening mammogram is recommended. BI-RADS: 1 - Negative. The patient has been or will be contacted. The patient will be entered into a reminder system with a target due date of 1 year for her next mammogram. Electronically signed by: Sandip Stauffer M.D. Narrative 11/17/2023 10:51 AM CDT EXAMINATION: SCREENING MAMMOGRAM BILATERAL W YONATHAN ORDERING HEALTHCARE PROVIDER: SELF SCREENING MAMMOGRAM HISTORY: Routine screening mammography. COMPARISON: 04/22/2023, 02/22/2023, 09/07/2021, 08/06/2020, 07/23/2020, 06/25/2020, 01/02/2019, 02/14/2018, 11/07/2017 TECHNIQUE: CC and MLO views of the bilateral breasts were obtained with digital technique using breast tomosynthesis with C view. Computer aided detection was utilized. FINDINGS: DENSITY: There are scattered fibroglandular elements in the bilateral breasts. BREASTS: There is an unchanged biopsy marking clip in the right breast. There are no suspicious masses, suspicious calcifications, or other suspicious findings in either breast. There has been no suspicious interval change. us Self Screening Mammogram IMG MAMMO PROCEDURES Fi nal Result * Dexa Axial Skeleton Bone Density 1 or 2 Site (09/10/2022 11:13 AM MICA PLATE LAYER) Anatomical Region Laterality Modality Body N/A Other 09/10/2022 9:1 3 PM MICA PLATE LAYER Narrative 09/10/2022 9:14 PM MICA PLATE LAYER EXAM DESCRIPTION: DEXA AXIAL SKELETON BONE DENSITY 1 OR MORE SITES REASON FOR STUDY: 72 y/o year old F with given history of screening. Postmenopausal Youth Corrections Officer/Model: trivago Discovery SL (S/N [id number]) CLINICAL INFORMATION: Current height: 64.5 inches Maximum height: 65.5 inches Weight: 183 pounds Risk factors: Postmenopausal COMPARISON: 06/25/2020. FINDINGS: AP LUMBAR SPINE L1-L4: Total BMD is 1.131 g/cm2 T-score is 0.8 Dissimilar scan types or analysis methods precludes assessment for calculating a significant change. LEFT HIP: Total BMD is 0.827 g/cm2 T-score is -0.9 Dissimilar scan types or analysis methods precludes assessment for calculating a significant change. Femoral neck BMD is 0.657 g/cm2 T-score is -1.7 FRAX: 10 year risk for a major osteoporotic fracture is 10 %, 10 year risk for a hip fracture is 1.7 % IMPRESSION: Based on the left femoral neck bone mineral density (T-score -1.7 ) the patient has low bone mass . REFERENCE: Bone mineral density: Normal (T-score above or = -1.0) Low bone mass (T-score between -1.0 and -2.5) replaces the previously used term osteopenia Osteoporosis (T-score = or below -2.5) Medical evaluation for secondary causes of low bone mineral density may be appropriate. FRAX is a World Health Organization validated fracture risk assessment tool that calculates a person's 10 year probability of a major osteoporosis related fracture and hip fracture. According to the National Osteoporosis Foundation guidelines, postmenopausal women and men age 50 or older with low bone mass and a 10 year probability of a major osteoporosis related fracture = or greater than 20% or a 10 year probability of a hip fracture = or greater than 3% should be considered for treatment. For further information, including treatment recommendations, please refer to the 2013 ISCD Official Positions (http://www.iscd.org) and the NOF's Clinician's Guide to Prevention and Treatment of Osteoporosis (http://www.nof.org/professionals/clinical-guidelines) THIS IS AN ELECTRONICALLY VERIFIED FINAL REPORT 09/10/2022 9:14 PM - Electronically signed by Jose Reddy M.D. MF: [id number] Report ID: [id number] Reading Location: [id number] Procedure Note Jose Reddy MD - 09/10/2022 EXAM DESCRIPTION: DEXA AXIAL SKELETON BONE DENSITY 1 OR MORE SITES REASON FOR STUDY: 72 y/o year old F with given history ofscreening. Postmenopausal Youth Corrections Officer/Model: trivago Discovery SL (S/N [id number]) CLINICAL INFORMATION: Current height: 64.5 inches Maximum height: 65.5 inches Weight: 183 pounds Risk factors: Postmenopausal COMPARISON: 06/25/2020. FINDINGS: AP LUMBAR SPINE L1-L4: Total BMD is 1.131 g/cm2 T-score is 0.8 Dissimilar scan types or analysis methods precludes assessment for calculating a significant change. LEFT HIP: Total BMD is 0.827 g/cm2 T-score is -0.9 Dissimilar scan types or analysis methods precludes assessment for calculating a significant change. Femoral neck BMD is 0.657 g/cm2 T-score is -1.7 FRAX: 10 year risk for a major osteoporotic fracture is 10 %, 10 year risk for ahip fracture is 1.7 % IMPRESSION: Based on the left femoral neck bone mineral density (T-score -1.7 )the patient has low bone mass . REFERENCE: Bone mineral density: Normal (T-score above or = -1.0) Low bone mass (T-score between -1.0 and -2.5) replaces thepreviously used term osteopenia Osteoporosis (T-score = or below -2.5) Medical evaluation for secondary causes of low bone mineral density may be appropriate. FRAX is a World Health Organization validated fracture risk assessmenttool that calculates a person's 10 year probability of a major osteoporosisrelated fracture and hip fracture. According to the National OsteoporosisFoundation guidelines, postmenopausal women and men age 50 or older with low bonemass and a 10 year probability of a major osteoporosis related fracture = or greater than 20% or a 10 year probability of a hip fracture = or greaterthan 3% should be considered for treatment. For further information, including treatment recommendations, please referto the 2013 ISCD Official Positions (http://www.iscd.org) and the NOF's Clinician's Guide to Prevention and Treatment of Osteoporosis (http://www.nof.org/professionals/clinical-guidelines) THIS IS AN ELECTRONICALLY VERIFIED FINAL REPORT 09/10/2022 9:14 PM - Electronically signed by Jose Reddy M.D. MF: [id number] Report ID: [id number] Reading Location: [place] [id number] us Rehana Carlos DO IMG DXA PROCEDURES Final R esult * COLONOSCOPY (05/20/2021 10:23 AM CDT) Anatomical Region Laterality Modality Other Narrative Procedure Note Sagar Lara MD - 05/20/2021 10:23 AM CDT [facility] Patient Name: Ghada Burk Procedure Date: 05/20/2021 10:23 AM Date of : 1950 Admit Type: Outpatient Age: 70 Gender: Female Attending MD: Sagar Lara M.D. Room: [facility]COPY ROOM 1 Note Status: Finalized Patient Profile: This is a 70 year old female. No family history of colon cancer. Screening for colon cancer. Procedure: Colonoscopy Indications: Screening for colorectal malignant neoplasm, Last colonoscopy 10 years ago Referring MD: Rehana Carlos D.O. Providers: Sagar Lara M.D. Impression: - One 9 mm polyp in the sigmoid colon, removed witha cold snare. Resected and retrieved. Clip (MR conditional) was placed. - Internal and external hemorrhoids. Recommendation: - Await pathology results. - Repeat colonoscopy in 3 - 5 years for screening purposes. - Continue present medications. Medicines: Monitored Anesthesia Care Complications: No immediate complications. Estimated Blood Loss: Estimated blood loss: none. Procedure: Pre-Anesthesia Assessment: - Prior to the procedure, a History and Physicalwas performed, and patient medications and allergieswere reviewed. The patient's tolerance of previous anesthesia was also reviewed. The risks andbenefits of the procedure and the sedation options and risks were discussed with the patient. All questions were answered, and informed consent was obtained. Prior Anticoagulants: The patient has taken no previous anticoagulant or antiplatelet agents except for aspirin. ASA Grade Assessment: III - A patient with severe systemic disease. After reviewing the risksand benefits, the patient was deemed in satisfactory condition to undergo the procedure. The benefits, risks and alternatives of theprocedure and sedation were discussed and informed consentwas obtained. All questions were answered. Please referto the signed informed consent document in the medical record. The scope was passed under direct vision.The Pediatric Colonoscope PCF-H190L [id number] was introduced through the anus and advanced to the the cecum, identified by appendiceal orifice andileocecal valve. The bowel preparation used was Miralax and bisacodyl tablets via split dose instruction. The quality of the bowel preparation was good. Bowelprep was administered using a split dose. Findings: Small external hemorrhoid noted on digital rectal examination The cecum appeared normal. The terminal ileum was intubated andappeared normal. The ascending colon appeared normal. The transverse colon appeared normal. The descending colon appeared normal A 9 mm polyp was found in the sigmoid colon. The polyp was sessile.The polyp was removed with a cold snare. Resection and retrieval were complete. To prevent bleeding after the polypectomy, one hemostaticclip was successfully placed (MR conditional). There was no bleeding atthe end of the procedure. Internal hemorrhoids were found during retroflexion. The hemorrhoids were medium-sized. Electronically signed by Sagar Lara M.D. Sagar Lara M.D. 05/20/2021 11:01:06 AM Number of Addenda: 0 Note Initiated On: 05/20/2021 10:23 AM Procedure Code(s): --- Professional --- 74874, Colonoscopy, flexible; with removal of tumor(s), polyp(s), or other lesion(s) by snare technique Diagnosis Code(s): --- Professional --- Z12.11, Encounter for screening for malignant neoplasm of colon K64.8, Other hemorrhoids K63.5, Polyp of colon CPT copyright 2019 [employer]. All rights reserved. The codes documented in this report are preliminary and upon layer out reviewmay be revised to meet current compliance requirements. Recognized by the [employer] for promoting quality in endoscopy us Sagar Lara MD ENDOSCOPY PROCEDURES Final Result * Hepatitis C antibody (07/04/2019 10:02 AM CDT) Hep C Ab Negative Negative BERE FRAZIER (SUE) Comment:Testing performed by : [facility], [address] [place] [address], [place]., [address] Blood specimen (specimen) 07/04/2019 10:02 AM CDT 07/04/2019 6:45 PM CDT us Rehana Carlos DO LAB MICROBIOLOGY - GENERAL ORDERABLES Final Result BERE FRAZIER (SUE) [facility] Department of Laboratories [place], [place] [id number] from Last 3 Months or Most Recently Relevant to Health Maintenance Insurance [facility] Member Subscriber Plan / Payer (Ef fective 2020-Present) Name:Ghada Burk Relation to Subscriber:Self Name:Ghada Burk Payer ID:[id number] (NAIC) Type:MEDICARE RISK OTHER Address: [address] [facility] [facility] [place] Advance Directives For more information, please contact: [phone] * Full Code (Latest Code Status on File) Date Activated Date Inactivated Comments 04/08/2023 8:53 AM 04/08/2023 1:58 PM * Full Code Date Activated Date Inactivated Comments 10/11/2022 6:35 PM 10/19/2022 5:56 PM * Full Code Date Activated Date Inactivated Comments 05/20/2021 9:28 AM 05/20/2021 4:30 PM Care Teams Oyster Grower Relationship Specialty Start Date End Date Dre Palmer MD [address] [facility] [address] PCP - General Family Medicine 05/05/24 Ramona Woods MD [address] [place] [address] Consulting Physician Cardiology 05/28/22 Vinicius Alvarado MD [address] [place] [address] [address] [address] Surgeon Orthopedic Surgery 07/22/22
--- OUTSIDE RECORDS SUMMARY | 2024-10-30 17:32 | XMS_ITS | Referral Summary ---
Author Organization [facility] Address [address] [place] [address] Phone Care Team Providers Care Freezer Machine Operator Name Role Phone Ramona Woods MD Unavailable [phone] Vinicius Alvarado MD Unavailable [phone] Dre Palmer MD Primary Care Provider [phone] Encounters Date Type Department Care Team Description 10/29/2024 Orders Only [facility] Medical [facility] Primary Care at [address] [place] [phone] Dre Palmer MD Nonrheumatic mitral valve regurgitation (Primary Dx) 10/26/2024 Telephone [facility] Medical [facility] Primary Care at [address] [place] [phone] Dre Palmer MD Referral Request 10/11/2024 Telephone [facility] Medical [facility] Primary Care at [address] [place] [address] Dre Palmer MD Medical Question/Miscellaneous ; Referral Request 09/13/2024 Telephone [facility] Primary Care [address] [place] [address] [place] [phone] Dre Palmer MD 08/22/2024 8:27 AM MANAGER RESEARCH - 08/22/2024 11:59 PM MANAGER RESEARCH Hospital Encounter [facility] [address] [place] [address] Elevated liver enzymes Discharge Disposition: Discharge to home or self care from Last 3 Months Allergies No known active allergies Medications cholecalciferol, [...] 07/09/2024 Assessment & Plan (07/09/2024 2:16 PM MANAGER RESEARCH): Chemistry Lab Results Component Value Date SODIUM [...] 07/09/2024 Assessment & Plan (07/09/2024 2:20 PM MANAGER RESEARCH): Discussed lifestyle modifications, diet and exercise. Routine blood work ordered/reviewed today. Yearly vision and dental examinations. Pain of right thumb 09/02/2023 Assessment & Plan (09/02/2023 10:14 PM MANAGER RESEARCH): Referral to hand surgeon, suspect ganglion cyst. [...] sertraline. Assessment & Plan (11/10/2022 4:24 PM MANAGER RESEARCH): Discussed starting a medication and pt is [...] 12/11/2021 Assessment & Plan (09/02/2023 10:14 PM MANAGER RESEARCH): Referral placed for neurology for further eval/mgmt. Assessment & Plan (08/03/2023 12:13 PM MANAGER RESEARCH): Referred to neurology for further eval/mgmt. Assessment & Plan (12/11/2021 2:15 PM CDT): Referred to neurology for further evaluation and management. Vitamin D deficiency 12/16/2020 Assessment & Plan (08/03/2023 12:13 PM MANAGER RESEARCH): Non-compliant with vitamin d supplement. Encouraged compliance. Labs ordered, will follow. Vit D3 5,000 international units daily has been recommended. Assessment & Plan (02/02/2023 6:33 PM CDT): Asx, labs ordered, will follow. Cont vit D supplements. Assessment & Plan (07/22/2022 2:46 PM MANAGER RESEARCH): Asymptomatic. Labs ordered, continue vitamin-D supplements. Assessment & Plan (12/11/2021 2:16 PM CDT): Labs ordered, will follow. Assessment & Plan (07/20/2021 12:53 PM MANAGER RESEARCH): Labs ordered Dermatomyositis 01/29/2020 Overview (01/29/2020): Managed by cisco network engineer Assessment & Plan (06/17/2020 5:31 PM CDT): Managed by cisco network engineer. Class 1 obesity due to exces s calories with serious comorbidity and body mass index (BMI) of 31.0 to 31.9 in adult 02/27/2019 Assessment & Plan (07/09/2024 2:13 PM MANAGER RESEARCH): Wt Readings from Last 3 Encounters: 07/09/24 [...] recommended. Assessment & Plan (07/20/2021 12:53 PM MANAGER RESEARCH): Healthy, low carbohydrate lifestyle and exercise for 150min/week recommended Assessment & Plan (12/24/2020 11:23 AM CDT): Weight reduction, daily exercise and dietary modifications recommended. Assessment & Plan (10/03/2020 8:59 AM MANAGER RESEARCH): Healthy, low carbohydrate lifestyle and exercise for [...] 02/27/2019 Assessment & Plan (08/03/2023 12:13 PM MANAGER RESEARCH): Continue gabapentin, referred to neurology. Assessment & [...] 06/08/2017 Assessment & Plan (07/22/2022 2:49 PM MANAGER RESEARCH): Mildly symptomatic with SHABAZZ, managed by cardiology. Assessment & Plan (12/11/2021 2:15 PM CDT): Referral to Cardiology per patient request for the new year. Assessment & Plan (07/20/2021 12:52 PM MANAGER RESEARCH): Stable, continues follow up with Cardiology Assessment & Plan (05/03/2018 6:59 PM CDT): Mildly SOB, referred ot cardiology for further eval/mgmt Assessment & Plan (06/08/2017 1:53 PM CDT): ECHO done in 2015. Khari continue to monitor. Primary hypertension 06/08/2017 Assessment & Plan (07/09/2024 2:15 PM MANAGER RESEARCH): BP Readings from Last 3 Encounters: 07/09/24 [...] 05/05/2024 Assessment & Plan (08/03/2023 12:12 PM MANAGER RESEARCH): Blood pressure at goal less than 140/90, continue current prescription medications, furosemide, metoprolol tartrate. Managed by cardiology. Assessment & Plan (02/02/2023 6:32 PM CDT): Blood pressure at goal less than 140/90, continue current prescription medications, furosemide, metoprolol. Assessment & Plan (11/29/2022 12:28 PM CDT): Clinically improved, continue current prescription medications, furosemide, metoprolol tartate. Assessment & Plan (07/22/2022 2:45 PM MANAGER RESEARCH): Blood pressure on the lower side today, however, patient is asymptomatic. Blood pressure is managed by Cardiology. Blood pressure goal is less than 140/90. Assessment & Plan (12/11/2021 2:15 PM CDT): Stable. Cont. Current prescription medications. Assessment & Plan (07/20/2021 12:52 PM MANAGER RESEARCH): Stable, continues follow up with Cardiology Assessment & Plan (12/24/2020 11:23 AM CDT): Blood pressure is hypotensive however patient is asymptomatic. Patient also sees Cardiology, who manages her losartan. Patient encouraged to get a home blood pressure monitor. If symptomatic, notify our office or the compounder office. Assessment & Plan (06/17/2020 5:32 PM [...] 06/07/2017 Assessment & Plan (07/09/2024 2:09 PM MANAGER RESEARCH): Following with cardio TTE pending Worsening sx Recommend increase exercise Following up with cardio Normal xray but pt is s/p open heart surgery Assessment & Plan (09/02/2023 10:13 PM MANAGER RESEARCH): Currently asymptomatic, referred to cardiology for further eval/mgmt. Assessment & Plan (06/08/2017 1:50 PM CDT): Will continue the lisinopril. Start Furosemide 40 mg along with Potassium 20 meq daily. Mixed hyperlipidemia 10/20/2014 Overview (12/11/2016): Hyperlipidemia Assessment & Plan (07/09/2024 1:47 PM MANAGER RESEARCH): Lab Results Component Value Date CHOL 162 [...] qhs Assessment & Plan (08/03/2023 12:11 PM MANAGER RESEARCH): LDL near goal of < 100, low chol diet recommended, continue Crestor. Assessment & Plan (02/02/2023 6:34 PM CDT): LDL near goal of < 100, low chol diet recommended. Cont rosuvastatin. Assessment & Plan (11/29/2022 12:30 PM CDT): LDL at goal of less than 100, continue current prescription medications, rosuvastatin. Assessment & Plan (07/22/2022 2:47 PM MANAGER RESEARCH): LDL at goal of less than 100, continue with dietary modifications and Rx medications. Assessment & Plan (12/11/2021 2:16 PM CDT): Low-cholesterol diet recommended. Continue current prescription medications. Assessment & Plan (07/20/2021 12:52 PM MANAGER RESEARCH): Stable, continuing Lipitor and labs ordered Assessment [...] (02/06/2021): Added automatically from request for surgery [id number] Poison pete dermatitis 02/29/20202019 Assessment & Plan (02/29/2020 11:34 AM CDT): Patient asked if I could address her poison pete. A gave her a prescription for a Medrol Dosepak. Foot pain, right 01/29/2020 06/17/2020 Assessment & Plan (02/01/2020 8:53 AM CDT): Diagnostic studies ordered. Will follow. Absent pedal pulses 01/29/2020 07/22/20 Nonrheumatic mitral valve regurgitation 05/03/2018 07/09/2024 Assessment & Plan (07/22/2022 2:49 PM MANAGER RESEARCH): Mildly symptomatic with SHABAZZ, managed by cardiology. [...] Sprain of rotator cuff capsule 04/04/2015 07/22/2022 Immunizations Immunization Administration Dates Next Due Influenza, [...] 04/02/2022,02/01/2013 ZOSTER LIVE 02/01/2013 ZOSTER Recombinant 12/20/2020,09/11/2020 Social History Tobacco Use Types Packs/Day Years [...] often do you attend chur ch or tenriism services? More than 4 times per year 10/20/2022 Do you belong to any clubs o r organizations such as buddhist groups, unions, fraternal or athletic groups, or [...] you are drinking? Patient does not drink 07/19/202 3 Q3: How often do you have si [...] place to sleep or slept in a long term (including now)? No 10/20/2022 Personal Safety Answer Date Recorded Have you ever been in or are you currently in a harmful physical or emotional relationship or is someone making you feel afraid or unsafe? Denies 05/05/2024 Comments No Sex and Gender Information Value Date Recorded Sex Assigned at Not on file Legal Sex Female 9:35 AM MANAGER RESEARCH Gender Identity Not on file Sexual Orientation Not on file Last Filed Vital Signs Vital Sign Reading Time Taken Comments Blood Pressure 130/70 07/09/2024 1:41 PM MANAGER RESEARCH Pulse 73 07/09/2024 1:41 PM MANAGER RESEARCH Temperature 38.4 C (101.1 F) 05/05/2024 8:07 PM CDT Respiratory Rate 16 07/09/2024 1:41 PM MANAGER RESEARCH Oxygen Saturation 97% 07/09/2024 1:41 PM MANAGER RESEARCH Inhaled Oxygen Concentration - - Weight 88.8 kg (195 lb 12.8 oz) 07/09/2024 1:41 PM MANAGER RESEARCH Height 162.6 cm (5' 4.02 ) 07/09/2024 1:41 PM CS T Body Mass Index 33.59 07/09/2024 1:41 PM MANAGER RESEARCH Plan of Treatment Not on file Medical Devices Implanted Type Area Hospitalist Nocturnist Physician Device Identifier Shelf Expiration Date Model / Serial / Lot Bard Peripheral Vascular [id number] Ultraclip Bard 17ga 12cm 2 Trigger Permanent Ultrasound - [id number] - [id number] Implanted:Qty: 1 on 08/06/2020 by Sandip Stauffer MD at [facility] Breast Right: Breast Bard Peripheral Vascular 10/02/2022 [id number] / [id number] / Terumo Cardio Vascular Gelweave Od6 Mm L30 Cm Suture Retention Unique Hydrolyzable Abdomen Thorax Straight Graft Cardiovascular Gelatin Polyester Woven 387731 - [id number] - [id number] Implanted:Qty: 1 on 10/11/2022 by Jose Pires MD at [facility] Graft Right: Axillary Artery Terumo Cardio Vascular 03/04/2025 [id number] / [id number] / [id number] [employer] Inc Graft Biological Cardiovascular Photofix 6x8cm Acellular Dermis Pfp 6x8 - [id number] Implanted:Qty: 1 on 10/11/2022 by Jose Pires MD at [facility] Graft N/A: Aorta [employer] Inc 06/13/2024 PFP 6X8 / / [id number] Terumo Cardio Vascular Gelweave 32mm 30cm Suture Retention Unique Hydrolyzable Abdomen [id number] - [id number] - [id number] Implanted:Qty: 1 on 10/11/2022 by Jose Pires MD at [facility] Graft N/A: Aorta Terumo Cardio Vascular 06/04/2025 [id number] / [id number] / [id number] Terumo Cardio Vascular Gelweave 28mm 30cm Suture Retention Unique Hydrolyzable Abdomen 023816 - [id number] - [id number] Implanted:Qty: 1 on 10/11/2022 by Jose Pires MD at [facility] Graft N/A: Aorta Terumo Cardio Vascular 02/02/2025 [id number] / [id number] / [id number] [employer] Stacie-Edward s Physio Ii 28mm Conde Sew Mitral Ring [id number] - [id number] - [id number] Implanted:Qty: 1 on 10/11/2022 by Jose Pires MD at [facility] Prosthetic Valve N/A: Mitral Valve [employer] 03/30/2027 [id number] / [id number] / Explanted Type Area Hospitalist Nocturnist Physician Device Identifier Shelf Expiration Date Model / Serial / Lot Riddle [employer] Stacie-Edwa rds Physio Ii 32mm Conde Sew Mitral Ring [id number] - [id number] - [id number] Explanted:Qty: 1 on 10/11/2022 at [facility] Prosthetic Valve N/A: Mitral Valve [employer] 02/16/2027 [id number] / [id number] / Tele[employer] Weck Horizon 6 Cartridge Ligate Triangulate Cross Section Heart 211370 - [id number] Explanted:Qty: 1 on 10/11/2022 at [facility] Right: Axillary Artery [employer] Inc [id number] / / [employer] Weck Horizon 6 Cartridge Ligate Triangulate Cross Section Heart 793303 - [id number] Explanted:Qty: 1 on 10/11/2022 at [facility] Right: Axillary Artery [employer] Inc [id number] / / [employer] Weck Horizon 6 Cartridge Ligate Triangulate Cross Section Heart 642107 - [id number] Explanted:Qty: 1 on 10/11/2022 at [facility] Right: Axillary Artery [employer] Inc [id number] / / [employer] Horizon Ligate Triangulate Cross Section Wire Large Chevron Heart Latex Free 816941 - [id number] Explanted:Qty: 1 on 10/11/2022 at [facility] [employer] [id number] / / [employer] Weck Horizon 6 Cartridge Ligate Triangulate Cross Section Heart 532034 - [id number] Explanted:Qty: 1 on 10/12/2022 by Jose Pires MD at [facility] [employer] [id number] / / [employer] Weck Horizon 6 Cartridge Ligate Triangulate Cross Section Heart 611344 - [id number] Explanted:Qty: 1 on 10/12/2022 by Jose Pires MD at [facility] [employer] [id number] / / Procedures Procedure Name Priority Date/Time Associated Diagnosis Comments US LIVER Schedule Routine, Read Routine (OP Routine) 08/22/2024 9:17 AM MANAGER RESEARCH Elevated liver enzymes SCREENING MAMMOGRAM BILATERAL W YONATHAN Schedule Routine, Read Routine (OP Routine) 11/17/2023 10:41 AM CDT Screening mammogram, encounter for DEXA AXIAL SKELETON BONE DENSITY 1 OR MORE SITES Schedule Routine, Read Routine (OP Routine) 09/10/2022 11:13 AM MANAGER RESEARCH Postmenopausal Screening for osteoporosis COLONOSCOPY 05/20/2021 10:23 AM CDT HEPATITIS C ANTIBODY Routine 07/04/2019 10:02 AM CDT Encounter for hepatitis C screening test for low risk patient from Last 3 Months or Most Recently Relevant to Health Maintenance Results * US Liver (08/22/2024 9:17 AM MANAGER RESEARCH) Anatomical Region Laterality Modality Abdomen N/A Ultrasound 08/28/2024 11:0 5 AM MANAGER RESEARCH Narrative 08/28/2024 11:07 AM MANAGER RESEARCH EXAM DESCRIPTION: US LIVER REASON FOR STUDY: [...] thickening or pericholecystic fluid. No positive sonographic [place] sign reported. BILIARY: No ductal dilatation. Common duct measures 5 mm . ASCITES: None. OTHER: Right kidney measures 9.4 cm in length. The right kidney is unremarkable. IMPRESSION: Normal liver ultrasound. THIS IS AN ELECTRONICALLY VERIFIED FINAL REPORT 08/28/2024 11:07 AM - Electronically signed by Jamarcus Marsh M.D. MM: MM Report ID: [id number] Reading Location: [id number] Procedure Note Jamarcus Marsh MD - 08/28/2024 [...] wall thickening or pericholecystic fluid. No positivesonographic [place] sign reported. BILIARY: No ductal dilatation. Common duct measures 5 mm . ASCITES: None. OTHER: Right kidney measures 9.4 cm in length. The right kidney is unremarkable. IMPRESSION: Normal liver ultrasound. THIS IS AN ELECTRONICALLY VERIFIED FINAL REPORT 08/28/2024 11:07 AM - Electronically signed by Jamarcus Marsh M.D. MM: MM Report ID: [id number] Reading Location: [id number] us Dre Palmer MD IMG US PROCEDURES [...] 1 or 2 Site (09/10/2022 11:13 AM MANAGER RESEARCH) Anatomical Region Laterality Modality Body N/A Other 09/10/2022 9:13 PM MANAGER RESEARCH Narrative 09/10/2022 9:14 PM MANAGER RESEARCH EXAM DESCRIPTION: DEXA AXIAL SKELETON BONE DENSITY 1 OR MORE SITES REASON FOR STUDY: 72 y/o year old F with given history of screening. Postmenopausal Hospitalist Nocturnist Physician/Model: [employer] (S/N [id number]) CLINICAL INFORMATION: Current height: 64.5 inches Maximum [...] Jose Reddy M.D. MF: FREDDIE Report ID: [id number] Reading Location: [id number] Procedure Note Jose Reddy MD - 09/10/2022 EXAM DESCRIPTION: DEXA AXIAL SKELETON BONE DENSITY 1 OR MORE SITES REASON FOR STUDY: 72 y/o year old F with given history ofscreening. Postmenopausal Hospitalist Nocturnist Physician/Model: [employer] (S/N [id number]) CLINICAL INFORMATION: Current height: 64.5 inches Maximum [...] Jose Reddy M.D. MF: FREDDIE Report ID: [id number] Reading Location: [id number] us Rehana Carlos DO IMG DXA PROCEDURES Final R esult * COLONOSCOPY (05/20/2021 10:23 AM CDT) Anatomical Region Laterality Modality Other Narrative Procedure Note Sagar Laar MD - 05/20/2021 10:23 AM CDT [facility] Patient Name: Ghada Burk Procedure Date: 05/20/2021 10:23 AM Date of : 1950 Admit Type: Outpatient Age: 70 Gender: Female Attending MD: Sagar Lara M.D. Room: [facility]COPY RO[facility] 1 Note Status: Finalized Patient Profile: This is a 70 year old female. No family history of colon cancer. Screening for colon cancer. Procedure: Colonoscopy Indications: Screening for colorectal malignant neoplasm, Last colonoscopy 10 years ago Referring MD: Ivelisse FisherO. Providers: Sagar Lara M.D. Impression: - One [...] passed under direct vision.The Pediatric Colonoscope [id number]-H190L [id number] was introduced through the anus and advanced [...] 10:23 AM Procedure Code(s): --- Professional --- 21232, Colonoscopy, flexible; with removal of tumor(s), polyp(s), or other lesion(s) by snare technique Diagnosis Code(s): --- Professional --- Z12.11, Encounter for screening for malignant neoplasm of colon K64.8, Other hemorrhoids K63.5, Polyp of colon CPT copyright 2019 [employer]. All rights reserved. The codes documented in this report are preliminary and upon hcc coders reviewmay be revised to meet current compliance requirements. Recognized by the [employer] Society for Gastrointestinal Endoscopy for promoting quality in endoscopy us Sagar Lara MD ENDOSCOPY PROCEDURES Final Result * Hepatitis C antibody (07/04/2019 10:02 AM CDT) Hep C Ab Negative Negative BERE [facility]RAZIER ([place]) Comment:Testing performed by : [facility], [address] [place] [address], [facility] Blood specimen (specimen) 07/04/2019 10:02 AM CDT 07/04/2019 6:45 PM CDT Rehana Carlos DO LAB MICROBIOLOGY - GENERAL ORDERABLES Final Result [facility]RAZ[facility] ([place]) [address] [facility] Department [place] [address] from Last 3 Months or Most Recently Relevant to Health Maintenance Insurance [facility] [id number] Advance Directives For more information, please contact: [phone] * Full Code (Latest Code Status on File) Date Activated Date Inactivated Comments 04/08/2023 8:53 AM 04/08/2023 1:58 PM * Full Code Date Activated Date Inactivated Comments 10/11/2022 6:35 PM 10/19/2022 5:56 PM * Full Code Date Activated Date Inactivated Comments 05/20/2021 9:28 AM 05/20/2021 4:30 PM Care Teams Freezer Machine Operator Relationship Specialty Start Date End Date Dre Palmer MD [address] [place] [address] PCP - General Family Medicine 05/05/24 Ramona Woods MD [address] [place] [address] Consulting Physician Cardiology 05/28/22 Vinicius Alvarado MD [address] [facility] [address] [address] [place] [address] Surgeon Orthopedic Surgery 07/22/22
--- OUTSIDE RECORDS SUMMARY | 2024-10-30 17:32 | XMS_ITS | Encounter Summary ---
Author Organization [facility] Address [address] [place] [address] Care Team Providers Care Hand Sign Writer Name Role Phone Onelia Sow APRN-RELAY CHECKER Primary Care Provide r Kathi Snider MD Unavailable [phone] Encounter Details Date Type Department Care Team (Late st Contact Info) Description 01/24/2024 Lab Requisition [facility] - DermPath Lab [address] [facility] [place] [id number] Álvaro Noel MD [facility] DERMATOLOGY [address] [place] [phone] Squamous cell carcinoma of skin of right upper limb, including shoulder Social History Tobacco Use Types Packs/Day Years [...] on file documented as of this encounter Procedures Procedure Name Priority Date/Time Associated Diagnosis Comments DERMATOPATHOLOGY Routine 01/24/2024 12:0 0 AM CDT Squamous cell carcinoma of skin of right upper limb, including shoulder documented in this encounter Results * DERMATOPATHOLOGY (01/24/2024 12:00 AM CDT) Case Report Dermatopathology Report Case: [id number] Authorizing Provider: Álvaro Noel MD Collected: 01/24/2024 12:00 AM Ordering Location: [facility] - Received: 01/25/2024 12:27 PM [...] of a non-oriented ellipse of skin measuring 00x39r8 mm. The epidermal surface is unremarkable. The margin is inked green. The 12 o'clock and 6 o'clock tips are submitted in cassette 1. The remainder of the ellipse is serially sectioned and submitted in cassette 2. Jar 0. 1:49 PM CDT DERMATOPATHOLOGY LABORATORY Microscopic Description Specimen A. SKIN, right shoulder: There are fibroblasts and collagen bundles oriented parallel to the skin surface. There are elongated blood vessels, some of which are oriented perpendicular to the skin surface. No residual squamous cell carcinoma is identified. 1:49 PM CDT DERMATOPATHOLOGY LABORATORY Disclaimer An external and internal positive and negative controls are appropriate for the histochemical, immunohistochemical and immunofluorescence stain(s) in this case (if any), except where stated explicitly. The performance characteristics of the stain(s) cited in this report were developed and its performance characteristic determined by the Dermatopathology Laboratory at [facility], directed by Dr. Etienne Sevilla. These tests need not be, and therefore are not, approved by the [place] Food and Drug Administration. The tests are used for clinical purposes. Billing Codes Specimen Charges Stain Charges 17751 1 1:49 PM CDT DERMATOPATHOLOGY LABORATORY Embedded Images 1:49 PM CDT DERMATOPATHOLOGY LABORATORY Pathology/Cytolog y TISSUE SPECIMEN FROM SKIN / Unknown 01/24/2024 01/25/2024 12:27 PM CDT Álvaro Noel MD LAB - PATHOLOGY/CYTO LOGY ORDERABLES DERMATOPATHOLOGY LABORATORY [facility] - Department of Dermatology [address] [phone] documented in this encounter Visit Diagnoses Diagnosis Squamous cell carcinoma of skin of right upper limb, including shoulder Squamous cell carcinoma of skin of upper limb, including shoulder documented in this encounter Care Teams Hand Sign Writer Relationship Specialty Start Date End Date Onelia Sow, JOB ANALYST-RELAY CHECKER PCP - General Nurse Practitioner 01/21/16 Kathi Snider MD [address] [facility] [address] [place] [address] Cardiovascular Disease 01/21/16 documented as of this encounter
--- OUTSIDE RECORDS SUMMARY | 2024-10-30 17:32 | XMS_ITS | Clinical Summary ---
Author Organization [facility] Address [address] [place] [place] [address] Care Team Providers Care Kitchen Supervisor Name Role Phone Onelia Sow APRN-ENDOCRINOLOGIST Primary Care Provide r Kathi Snider MD Unavailable [phone] Source Comments [facility],non-owned Affiliates and Associated Physician Practices is amultiple site organization consisting of ambulatory clinics and hospital sitesin [place], [place]. This disclosure is being madepursuant to the Care Everywhere program and may not contain all information available regarding this patient. Last updated 18.[facility] Allergies No known active allergies Medications * [...] migh t be different from the original. Service Delivery Director - Dr. Kathi Snider Problem Noted Date Diagnosed Date Hypertension with goal blood pressure less than 130/85 01/21/2016 Pure hypercholesterolemia 01/21/2016 Chest pressure 01/21/2016 Shortness of breath 01/21/2016 Nonrheumatic aortic valve stenosis 01/21/2016 Overview (01/21/2016): Echo 12/01/15- Nl LV syst func, LVEF 73%, mild LAE, mild ( pk matt, 2.07, mean grad 9 mm Hg), mild MR/TR, RVSP43 mm Hg Family History Medical History Relation Name Comments Hypertension Father [place] Father Sudd. <30 Father Stroke Mother Relation Name Status Comments Father Mother Social History Tobacco Use Types Packs/Day Years [...] Comments Blood Pressure 128/86 09/08/2016 11:45 AM BICYCLE INSPECTOR Pulse 80 09/08/2016 11:45 AM BICYCLE INSPECTOR Temperature - - Respiratory Rate 12 09/08/2016 11:45 AM BICYCLE INSPECTOR Oxygen Saturation 12% 07/19/2016 9:50 AM BICYCLE INSPECTOR Inhaled Oxygen Concentration - - Weight 80.7 kg (178 lb) 09/08/2016 11:45 AM BICYCLE INSPECTOR Height 163.2 cm (5' 4.25 ) 09/08/2016 11:[address] Body Mass Index 30.32 09/08/2016 11:45 AM BICYCLE INSPECTOR Plan of Treatment Health Maintenance Due Date Last Done Comments BONE DENSITY TESTING 1950 COLOGUARD (AGES 45-75) - COLON CA SCREENING 1952 COLON MONITORING 1952 COLONOSCOPY - COLON CA SCREENING 1952 CT COLONOGRAPHY - COLON CA SCREENING 1950 Colorectal Cancer Screening 1950 FIT - COLON CA SCREENING 1952 FLEX SIG - COLON CA SCREENING 1952 HEPATITIS C SCREENING 05/28/1970 DTAP/TDAP/TD VACCINES (1 - Tdap) 1971 PNEUMOCOCCAL VACCINE 50+ (1 of 1 - PCV) 2002 ZOSTER VACCINE (1 of 2) 2002 COVID-19 VACCINE (3 - season) 2024 10/29/2020, 10/03/2020 INFLUENZA VACCINE (#1) 2024 9, 07/07/2018, 06/07/2017, Additional history exists DEPRESSION SCREENING 09/05/2024 MEDICARE AWV CALENDAR YEAR 2024 MAMMOGRAM 09/10/2024 09/10/2022 Respiratory Syncytial Virus (RSV) Vaccine Pt: or over 60 yrs (1 - 1-dose 75+ series) 2027 HEPATITIS B VACCINE Aged Out No longe r eligible based on patient's age to complete this topic HIB VACCINE Aged Out No longer eligi ble based on patient's age to complete this topic HPV VACCINE Aged Out No longer eligi ble based on patient's age to complete this topic MENINGOCOCCAL (Group B) VACCINE Aged Out No longer eligible based on patient's age to complete this topic MENINGOCOCCAL VACCINE Aged Out No margarita ariana eligible based on patient's age to complete this topic Care Teams Kitchen Supervisor Relationship Specialty Start Date End Date Onelia Sow, POLE FRAME CONSTRUCTION WORKER-ENDOCRINOLOGIST PCP - General Nurse Practitioner 01/21/16 Kathi Snider MD [address] [facility] [address] [facility] [place] [id number] Cardiovascular Disease 01/21/16
== END ==
LOC: ANHLAB 15:00
PROVIDERS: Visit Provider Plastic Surgery
DX: C44.712 Basal cell carcinoma of skin of right lower limb, including hip (principal)
CPT/HCPCS: 88305